=== PATIENT | male | born 1930 | race Caucasian/White ===

== ENCOUNTER 2017-08-27 20:10 | Inpatient (IN) | payer MEDICARE, BC ==
[~2017-08-27] VITALS: Ht 177.8 cm; Wt 71.7 kg
[~2017-08-27 20:10] MED LIST: BIOT1CAP3 PO; FINA5TAB11 PO; LEVO125T8 PO; MULT1TAB73 PO; OMEP20CA10 PO; ROSU20TA PO; TAMS0.4C34 PO; UBID100C PO; WARF1TAB2
[2017-08-27] MEDS ORDERED: WARF10TA2 PO (20:37)
[2017-08-27] MEDS ORDERED: WARF5TAB6 PO (20:37)
[2017-08-27] MEDS ORDERED: CLIN150C16 PO (20:37)
[2017-08-27] MEDS ORDERED: CEFU500T66 PO (20:37)
[2017-08-27] MEDS ORDERED: PANT40TA4 PO (20:37)
[2017-08-27] MEDS ORDERED: CODE118S2 PO (20:37)
[2017-08-27] MEDS ORDERED: ACETAMINOPHEN ES 500 MG TABLET PO ONE (21:00)
[2017-08-27 21:15] LABS: BASOPHILS % (AUTO) 0.2 % (0.0-2.0); EOSINOPHILS % (AUTO) 0.5 % (0.0-7.0); HEMATOCRIT 44.4 % (36.7-47.1); HEMOGLOBIN 14.9 g/dL (12.5-16.3); LYMPHOCYTES # (AUTO) 0.4 K/uL (20.0-40.0); LYMPHOCYTES % (AUTO) 5.5 % (20.5-51.5); MEAN CORPUSCULAR HEMOGLOBIN 29.9 uug (23.8-33.4); MEAN CORPUSCULAR HGB CONC 34 g/dL (32.5-36.3); MEAN CORPUSCULAR VOLUME 89.3 fL (73.0-96.2); MONOCYTES # (AUTO) 0.5 K/uL (2.0-10.0); MONOCYTES % (AUTO) 7.4 % (0.0-11.0); NEUTROPHILS # (AUTO) 6.1 K/uL (1.8-8.9); NEUTROPHILS % (AUTO) 86.4 % (38.5-71.5); PLATELET COUNT (AUTO) 123 K/uL (152-348); RED BLOOD CELL COUNT(AUTO) 4.98 MIL/uL (4.06-5.63); WHITE BLOOD COUNT (AUTO) 7.1 K/uL (3.6-10.2)
[2017-08-27] MEDS ORDERED: ACETAMINOPHEN ES 500 MG TABLET ONE (21:15)
[2017-08-27 21:26] LABS: CARBON DIOXIDE 25 mmol/L (21-32); CHLORIDE 105 mmol/L (98-107); CREATININE 1.3 mg/dL (0.6-1.3); GLUCOSE 117 mg/dL (74-106); POTASSIUM 4.2 mmol/L (3.5-5.1); UREA NITROGEN, BLOOD 24 mg/dL (7-18)
[2017-08-27 21:43] LABS: ALANINE AMINOTRANSFERASE 38 U/L (16-63); ALKALINE PHOSPHATASE 99 U/L (50-136); ASPARTATE AMINOTRANSFERASE 37 U/L (15-37); BILIRUBIN,DIRECT 0.3 mg/dL (0.0-0.2); BILIRUBIN,TOTAL 1.3 mg/dL (0.2-1.0); TOTAL PROTEIN, SERUM 7.7 g/dL (6.4-8.2)
[2017-08-27] MEDS ORDERED: IV NORMAL SALINE 500 ML BAG IV ONE (23:15)
[2017-08-28 00:22] LABS: *BILIRUBIN,URIN NEGATIVE (NEGATIVE); *BLOOD, URINE 2+ (NEGATIVE); *CLARITY,URINE CLEAR (CLEAR); *COLOR,URINE YELLOW (YELLOW); *KETONES,URINE NEGATIVE (NEGATIVE); *PROTEIN,URINE 1+ (NEGATIVE); LEUKOCYTE ESTERASE ,URINE NEGATIVE (NEGATIVE); NITRITE, URINE NEGATIVE (NEGATIVE); PH,URINE 6.5 (5.0-8.0); UGLUCOSE NEGATIVE (NEGATIVE)
--- NOTE | 2017-08-28 00:48 | NUR ---
Pt. admitted to TELE, under care of Mariana Gutiérrez Belongs List completed
[2017-08-28 01:07] LABS: BACTERIA,URINE NONE SEEN /HPF (NONE SEEN); RBC,URINE 50-80 /HPF (0-3); SQUAMOUS EPITHELIAL CELL,UR FEW /HPF (NONE SEEN)
[2017-08-28 01:08] LABS: MUCUS,URINE FEW /LPF (0-FEW)
[2017-08-28 01:49] VITALS: BP 130/69
[2017-08-28] MEDS ORDERED: HYDROCODONE/APAP 5-325MG TABLET PO PRN (02:45)
[2017-08-28] MEDS ORDERED: ONDANSETRON 4 MG/2 ML VIAL IV PRN (02:45)
[2017-08-28] MEDS ORDERED: MAGNESIUM HYDROXIDE 30 ML LIQUID UDC PO PRN (02:45)
[2017-08-28] MEDS ORDERED: Z GUARD REMEDY PASTE 57 GM TUBE TOP PRN (02:45)
[2017-08-28] MEDS ORDERED: ZOLPIDEM 5 MG TABLET PO PRN (02:45)
[2017-08-28] MEDS ORDERED: WARFARIN SODIUM 5 MG TABLET PO SCH (03:00)
--- NOTE | 2017-08-28 03:00 | NUR ---
Admitted this 86 y/o male patient via gurney, awake alert & oriented w/ spouse at bedside. Placed on Telemetry Dx. Chest pain. front desk monitor shows A-fib HR 70s. Vital signs are WNL. Room & bed orientation initiated, patient verbalized understanding. Assisted to the bathroom, patient voided, unsteady gait noted. Fall precaution observed. Kept comfortable. Will continue to monitor.
[2017-08-28 04:00] VITALS: BP 118/58
--- NOTE | 2017-08-28 06:33 | NUR ---
Fairly rested, A-fib on the monitor. Afebrile. For 2D echo procedure in AM.
[2017-08-28 07:37] LABS: BASOPHILS % (AUTO) 0.1 % (0.0-2.0); EOSINOPHILS # (AUTO) 0.1 K/uL (0.0-0.7); EOSINOPHILS % (AUTO) 1.1 % (0.0-7.0); HEMOGLOBIN 14.3 g/dL (12.5-16.3); LYMPHOCYTES # (AUTO) 1.4 K/uL (20.0-40.0); LYMPHOCYTES % (AUTO) 17.4 % (20.5-51.5); MEAN CORPUSCULAR HEMOGLOBIN 30.1 uug (23.8-33.4); MEAN CORPUSCULAR HGB CONC 33 g/dL (32.5-36.3); MEAN CORPUSCULAR VOLUME 90.3 fL (73.0-96.2); MONOCYTES % (AUTO) 12.2 % (0.0-11.0); NEUTROPHILS # (AUTO) 5.5 K/uL (1.8-8.9); NEUTROPHILS % (AUTO) 69.2 % (38.5-71.5); PLATELET COUNT (AUTO) 113 K/uL (152-348); RED BLOOD CELL COUNT(AUTO) 4.76 MIL/uL (4.06-5.63); WHITE BLOOD COUNT (AUTO) 7.9 K/uL (3.6-10.2)
--- NOTE | 2017-08-28 07:58 | NUR ---
PATIENT NOTED RESTING IN BED WITH EYES CLOSED, DENIES PAIN, NO SIGNS OF DISTRESS NOTED, CALL LIGHT IN REACH, BED LOCKED AND IN LOWEST POSITION
[2017-08-28 08:08] LABS: CARBON DIOXIDE 22 mmol/L (21-32); CHLORIDE 106 mmol/L (98-107); CREATININE 1.2 mg/dL (0.6-1.3); GLUCOSE 96 mg/dL (74-106); PHOSPHOROUS 3.3 mg/dL (2.5-4.9); POTASSIUM 3.8 mmol/L (3.5-5.1); UREA NITROGEN, BLOOD 21 mg/dL (7-18)
[2017-08-28] MEDS ORDERED: Medication Not On Formulary EA (Multivitamins (Multivitamin) 1 TAB) PO SCH (09:00)
[2017-08-28] MEDS ORDERED: Medication Not On Formulary EA (Rosuvastatin Calcium (Crestor) 1 TAB) PO SCH (09:00)
[2017-08-28] MEDS ORDERED: Medication Not On Formulary EA (Biotin 1 MG) PO SCH (09:00)
[2017-08-28] MEDS: MULTIVITAMINS,THERAPEUTIC TABLET PO SCH (09:04)
[2017-08-28] MEDS: PANTOPRAZOLE SODIUM 40 MG TABLET.DR PO SCH (09:05)
[2017-08-28] MEDS: LEVOTHYROXINE SODIUM 125 MCG TABLET PO SCH (09:05)
[2017-08-28] MEDS: FINASTERIDE 5 MG TABLET PO SCH (09:05)
[2017-08-28] MEDS ORDERED: CEFTRIAXONE 1 G in IV DEXTROSE 5% 50 ML IV SCH (11:00)
[2017-08-28 11:34] VITALS: BP 114/63
[2017-08-28] MEDS ORDERED: IPRATROPIUM BROMIDE 0.5 MG/2.5 ML NEBU NEB PRN (13:30)
[2017-08-28] MEDS ORDERED: ALBUTEROL SULFATE 2.5 MG/3 ML NEBU NEB PRN (13:30)
[2017-08-28] MEDS ORDERED: LORAZEPAM 2 MG/1 ML VIAL IV PRN (13:30)
[2017-08-28] MEDS: THIAMINE HCL 100 MG TABLET PO SCH (13:51)
[2017-08-28] MEDS: FOLIC ACID 1 MG TABLET PO SCH (13:51)
--- NOTE | 2017-08-28 14:20 | NUR ---
PT WAS SLEEPING AT 1140 AND WANTED ME TO RETURN SO PT CAN REST. RETURNED AT 1420 AND PATIENT WAS EATING. HE REQUESTED I DO TMRW IN THE AM.
[2017-08-28 15:32] VITALS: BP 113/46
[2017-08-28] MEDS: ACETAMINOPHEN 325 MG TABLET PO PRN ×2 (15:35→23:31)
[2017-08-28] MEDS: WARFARIN SODIUM 5 MG TABLET PO SCH (18:42)
[2017-08-28 19:00] VITALS: BP 105/58
--- NOTE | 2017-08-28 19:30 | NUR ---
pt placed on isolation for droplet precautions, per md orders
[2017-08-28] MEDS: TAMSULOSIN HCL 0.4 MG CAP.SR.24H PO SCH (20:37)
[2017-08-28] MEDS: ATORVASTATIN 40 MG TABLET PO SCH (20:43)
--- NOTE | 2017-08-28 21:00 | NUR ---
received to care, lying in bed, sleeping on and off, pleasant upon approach. mostly compliant with treatment, but refused his bedtime dose of lipitor. tele monitor shows a fib, while resting. no distress noted. call light in reach. will continue to monitor closely.
[2017-08-29] VITALS: BP 106/37
[2017-08-29 04:00] VITALS: BP 101/43
[2017-08-29] MEDS: PANTOPRAZOLE SODIUM 40 MG TABLET.DR PO SCH (06:26)
[2017-08-29] MEDS: LEVOTHYROXINE SODIUM 125 MCG TABLET PO SCH (06:26)
[2017-08-29 06:36] LABS: BASOPHILS % (AUTO) 0.2 % (0.0-2.0); HEMOGLOBIN 13.2 g/dL (12.5-16.3); LYMPHOCYTES # (AUTO) 0.9 K/uL (20.0-40.0); MEAN CORPUSCULAR HGB CONC 33 g/dL (32.5-36.3); NEUTROPHILS # (AUTO) 3.7 K/uL (1.8-8.9); WHITE BLOOD COUNT (AUTO) 5.3 K/uL (3.6-10.2)
--- NOTE | 2017-08-29 06:38 | NUR ---
END OF SHIFT NOTES. PT SLEPT WELL THROUGHOUT SHIFT. IN STABLE CONDITION. IV INTACT AND PATENT. A-FIB WITH HEART RATE LOW 36 ON THE TELE MONITOR. ALL NEEDS ATTENDED. ISOLATION PRECAUTIONS IN PLACE. SAFETY MAINTAINED. CALL LIGHT WITHIN REACH.
[2017-08-29 06:50] LABS: EOSINOPHILS % (AUTO) 0.9 % (0.0-7.0); HEMATOCRIT 39.7 % (36.7-47.1); LYMPHOCYTES % (AUTO) 17.2 % (20.5-51.5); MEAN CORPUSCULAR HEMOGLOBIN 29.8 uug (23.8-33.4); MEAN CORPUSCULAR VOLUME 89.9 fL (73.0-96.2); MONOCYTES # (AUTO) 0.7 K/uL (2.0-10.0); MONOCYTES % (AUTO) 12.6 % (0.0-11.0); NEUTROPHILS % (AUTO) 69.1 % (38.5-71.5); PLATELET COUNT (AUTO) 94 K/uL (152-348); RED BLOOD CELL COUNT(AUTO) 4.42 MIL/uL (4.06-5.63)
[2017-08-29 07:15] LABS: ALANINE AMINOTRANSFERASE 23 U/L (16-63); ALKALINE PHOSPHATASE 72 U/L (50-136); ASPARTATE AMINOTRANSFERASE 34 U/L (15-37); BILIRUBIN,TOTAL 0.8 mg/dL (0.2-1.0); CARBON DIOXIDE 25 mmol/L (21-32); CHLORIDE 107 mmol/L (98-107); CHOLESTEROL 94 mg/dL (<200); CREATININE 1.3 mg/dL (0.6-1.3); GLUCOSE 97 mg/dL (74-106); HDL CHOLESTEROL 42 mg/dL (40-60); PHOSPHOROUS 3.3 mg/dL (2.5-4.9); TOTAL PROTEIN, SERUM 6.4 g/dL (6.4-8.2); TRIGLYCERIDES 55 MG/DL (30-150); UREA NITROGEN, BLOOD 28 mg/dL (7-18)
[2017-08-29] MEDS: FINASTERIDE 5 MG TABLET PO SCH (08:44)
[2017-08-29] MEDS: MULTIVITAMINS,THERAPEUTIC TABLET PO SCH (08:44)
[2017-08-29] MEDS: FOLIC ACID 1 MG TABLET PO SCH (08:44)
[2017-08-29] MEDS: THIAMINE HCL 100 MG TABLET PO SCH (08:44)
[2017-08-29 10:43] LABS: BAND % (MANUAL) 2 % (0-10); LYMPHOCYTES % (MANUAL) 17 % (20-40); MONOCYTES % (MANUAL) 13 % (2-10); NEUTROPHILS % (MANUAL) 68 % (42-75)
[2017-08-29] MEDS: OSELTAMIVIR PHOSPHATE 75 MG CAPSULE PO SCH ×2 (10:57→22:45)
[2017-08-29 11:35] VITALS: BP 110/58
[2017-08-29] MEDS: CEFTRIAXONE 1 G in IV DEXTROSE 5% 50 ML IV SCH (13:44)
[2017-08-29] MEDS: ALBUTEROL SULFATE 2.5 MG/3 ML NEBU NEB SCH ×2 (13:57→19:47)
[2017-08-29] MEDS: IPRATROPIUM BROMIDE 0.5 MG/2.5 ML NEBU NEB SCH ×2 (13:57→19:47)
[2017-08-29 15:53] VITALS: BP 136/66
[2017-08-29] MEDS: ACETAMINOPHEN 325 MG TABLET PO PRN (15:54)
--- NOTE | 2017-08-29 16:35 | NUR ---
Pt has elevated temp of 102.5. Tylenol given and cooling measure started. Will monitor pt. 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 Call light is within reach.
[2017-08-29] MEDS ORDERED: WARFARIN SODIUM 10 MG TABLET PO SCH (17:00)
--- NOTE | 2017-08-29 17:30 | NUR ---
Temp rechecked 99.3. Prior interventions effective. Call light is within reach.
--- NOTE | 2017-08-29 18:30 | NUR ---
Fall precaution effective no fall noted this shift. Current temp of 98.0 Cooling measure effective.
--- NOTE | 2017-08-29 19:45 | NUR ---
PT RECEIVED IN BED, AWAKE. A/OX2. ABLE TO MAKE NEEDS KNOWN. V/S STABLE. IN NO ACUTE DISTRESS. NO C/O PAIN AT THIS TIME. ON RA, TOLERATING WELL. AFEBRILE AT THIS TIME. IV INTACT AND PATENT. DROPLET PRECAUTIONS IN PLACE. SAFETY MEASURES IMPLEMENTED. FALL RISK, BED ALARM SET. CALL LIGHT WITHIN REACH.
[2017-08-29 20:00] VITALS: BP 114/57
[2017-08-29] MEDS: ATORVASTATIN 40 MG TABLET PO SCH (22:44)
[2017-08-29] MEDS: TAMSULOSIN HCL 0.4 MG CAP.SR.24H PO SCH (22:44)
[2017-08-30] MEDS: IPRATROPIUM BROMIDE 0.5 MG/2.5 ML NEBU NEB SCH ×4 (01:30→18:55)
[2017-08-30] MEDS: ALBUTEROL SULFATE 2.5 MG/3 ML NEBU NEB SCH ×4 (01:30→18:55)
[2017-08-30 04:00] VITALS: BP 139/72
[2017-08-30] MEDS: PANTOPRAZOLE SODIUM 40 MG TABLET.DR PO SCH (06:48)
[2017-08-30] MEDS: LEVOTHYROXINE SODIUM 125 MCG TABLET PO SCH (06:48)
[2017-08-30 07:00] LABS: BASOPHILS % (AUTO) 0.1 % (0.0-2.0); EOSINOPHILS # (AUTO) 0.1 K/uL (0.0-0.7); EOSINOPHILS % (AUTO) 1.9 % (0.0-7.0); HEMATOCRIT 40.1 % (36.7-47.1); HEMOGLOBIN 13.3 g/dL (12.5-16.3); LYMPHOCYTES # (AUTO) 0.8 K/uL (20.0-40.0); LYMPHOCYTES % (AUTO) 18.2 % (20.5-51.5); MEAN CORPUSCULAR HEMOGLOBIN 29.6 uug (23.8-33.4); MEAN CORPUSCULAR HGB CONC 33 g/dL (32.5-36.3); MEAN CORPUSCULAR VOLUME 89.4 fL (73.0-96.2); MONOCYTES # (AUTO) 0.7 K/uL (2.0-10.0); MONOCYTES % (AUTO) 14.4 % (0.0-11.0); NEUTROPHILS % (AUTO) 65.4 % (38.5-71.5); PLATELET COUNT (AUTO) 97 K/uL (152-348); RED BLOOD CELL COUNT(AUTO) 4.48 MIL/uL (4.06-5.63); WHITE BLOOD COUNT (AUTO) 4.7 K/uL (3.6-10.2)
[2017-08-30 07:07] LABS: ALANINE AMINOTRANSFERASE 20 U/L (16-63); ALKALINE PHOSPHATASE 75 U/L (50-136); ASPARTATE AMINOTRANSFERASE 33 U/L (15-37); BILIRUBIN,TOTAL 0.6 mg/dL (0.2-1.0); CARBON DIOXIDE 25 mmol/L (21-32); CHLORIDE 108 mmol/L (98-107); GLUCOSE 92 mg/dL (74-106); MAGNESIUM 2.1 mg/dL (1.8-2.4); PHOSPHOROUS 2.7 mg/dL (2.5-4.9); POTASSIUM 3.7 mmol/L (3.5-5.1); TOTAL PROTEIN, SERUM 6.4 g/dL (6.4-8.2); UREA NITROGEN, BLOOD 26 mg/dL (7-18)
--- NOTE | 2017-08-30 07:34 | NUR ---
END OF SHIFT NOTES. PT SLEPT WELL THROUGHOUT SHIFT. IN STABLE CONDITION. ALL NEEDS ATTENDED. SAFETY MAINTAINED. CALL LIGHT WITHIN REACH
[2017-08-30] MEDS: MULTIVITAMINS,THERAPEUTIC TABLET PO SCH (08:38)
[2017-08-30] MEDS: THIAMINE HCL 100 MG TABLET PO SCH (08:39)
[2017-08-30] MEDS: FINASTERIDE 5 MG TABLET PO SCH (08:39)
[2017-08-30] MEDS: FOLIC ACID 1 MG TABLET PO SCH (08:39)
[2017-08-30] MEDS: OSELTAMIVIR PHOSPHATE 75 MG CAPSULE PO SCH ×3 (08:40→21:49)
--- NOTE | 2017-08-30 10:00 | NUR ---
Pt denies any c/o pain. Call light is within reach. IV site on left AC intact. Fall precaution implemented. Bed alarm on - Frequent offer of bathroom initiated.
[2017-08-30 11:02] VITALS: BP 114/72
[2017-08-30 11:47] LABS: EOSINOPHILS % (MANUAL) 5 % (0-8); LYMPHOCYTES % (MANUAL) 18 % (20-40); MONOCYTES % (MANUAL) 12 % (2-10); NEUTROPHILS % (MANUAL) 65 % (42-75)
[2017-08-30] MEDS: CEFTRIAXONE 1 G in IV DEXTROSE 5% 50 ML IV SCH (13:36)
[2017-08-30 15:25] VITALS: BP 120/62
[2017-08-30] MEDS: WARFARIN SODIUM 5 MG TABLET PO SCH (17:47)
--- NOTE | 2017-08-30 18:00 | NUR ---
No fall this am shift. Fall precaution effective. Will continue to monitor pt. Pt afebrile this am shift.
[2017-08-30 19:00] VITALS: BP 129/83
[2017-08-30] MEDS: ATORVASTATIN 40 MG TABLET PO SCH (21:48)
[2017-08-30] MEDS: TAMSULOSIN HCL 0.4 MG CAP.SR.24H PO SCH (21:49)
[2017-08-31] MEDS: IPRATROPIUM BROMIDE 0.5 MG/2.5 ML NEBU NEB SCH ×3 (00:41→14:10)
[2017-08-31] MEDS: ALBUTEROL SULFATE 2.5 MG/3 ML NEBU NEB SCH ×3 (00:41→14:10)
[2017-08-31 04:00] VITALS: BP 127/83
--- NOTE | 2017-08-31 05:45 | NUR ---
Pt slept throughout the night comfortably. Pt is in no acute distress.
[2017-08-31] MEDS: LEVOTHYROXINE SODIUM 125 MCG TABLET PO SCH (06:39)
[2017-08-31] MEDS: PANTOPRAZOLE SODIUM 40 MG TABLET.DR PO SCH (06:39)
[2017-08-31 07:52] LABS: BASOPHILS % (AUTO) 0.1 % (0.0-2.0); EOSINOPHILS # (AUTO) 0.2 K/uL (0.0-0.7); EOSINOPHILS % (AUTO) 5.3 % (0.0-7.0); HEMATOCRIT 41.1 % (36.7-47.1); HEMOGLOBIN 13.5 g/dL (12.5-16.3); LYMPHOCYTES # (AUTO) 1.1 K/uL (20.0-40.0); LYMPHOCYTES % (AUTO) 26.1 % (20.5-51.5); MEAN CORPUSCULAR HEMOGLOBIN 29.4 uug (23.8-33.4); MEAN CORPUSCULAR HGB CONC 33 g/dL (32.5-36.3); MEAN CORPUSCULAR VOLUME 89.7 fL (73.0-96.2); MONOCYTES # (AUTO) 0.6 K/uL (2.0-10.0); MONOCYTES % (AUTO) 15.2 % (0.0-11.0); NEUTROPHILS # (AUTO) 2.2 K/uL (1.8-8.9); NEUTROPHILS % (AUTO) 53.3 % (38.5-71.5); PLATELET COUNT (AUTO) 108 K/uL (152-348); RED BLOOD CELL COUNT(AUTO) 4.58 MIL/uL (4.06-5.63); WHITE BLOOD COUNT (AUTO) 4.1 K/uL (3.6-10.2)
[2017-08-31 08:10] LABS: ALANINE AMINOTRANSFERASE 23 U/L (16-63); ALKALINE PHOSPHATASE 76 U/L (50-136); ASPARTATE AMINOTRANSFERASE 37 U/L (15-37); BILIRUBIN,TOTAL 0.7 mg/dL (0.2-1.0); CARBON DIOXIDE 25 mmol/L (21-32); CHLORIDE 109 mmol/L (98-107); CREATININE 0.9 mg/dL (0.6-1.3); GLUCOSE 82 mg/dL (74-106); MAGNESIUM 2.1 mg/dL (1.8-2.4); POTASSIUM 3.8 mmol/L (3.5-5.1); TOTAL PROTEIN, SERUM 6.3 g/dL (6.4-8.2); UREA NITROGEN, BLOOD 19 mg/dL (7-18)
[2017-08-31] MEDS: OSELTAMIVIR PHOSPHATE 75 MG CAPSULE PO SCH (08:38)
[2017-08-31] MEDS: FINASTERIDE 5 MG TABLET PO SCH (08:38)
[2017-08-31] MEDS: MULTIVITAMINS,THERAPEUTIC TABLET PO SCH (08:40)
[2017-08-31] MEDS: THIAMINE HCL 100 MG TABLET PO SCH (08:40)
[2017-08-31] MEDS: FOLIC ACID 1 MG TABLET PO SCH (08:40)
[2017-08-31 11:16] VITALS: BP 147/45
[2017-08-31] MEDS ORDERED: AMPICILLIN 500 MG CAPSULE PO SCH (12:00)
[2017-08-31] MEDS ORDERED: OSEL75CA PO (12:45)
[2017-08-31] MEDS ORDERED: ACET325T53 PO (12:45)
[2017-08-31] MEDS ORDERED: AMPI500C11 PO (12:45)
[2017-08-31] MEDS ORDERED: WARF10TA2 PO ×2 (12:48)
[2017-08-31 13:48] LABS: BAND % (MANUAL) 6 % (0-10); EOSINOPHILS % (MANUAL) 3 % (0-8); LYMPHOCYTES % (MANUAL) 27 % (20-40); MONOCYTES % (MANUAL) 16 % (2-10); NEUTROPHILS % (MANUAL) 47 % (42-75)
[2017-08-31 13:52] LABS: REACTIVE LYMPHOCYTES 1 % (0-0)
--- NOTE | 2017-08-31 15:00 | NUR ---
pt discharged with all belongings and valuables, exit care packet, pt refused flu shot and pnuemonia shot. pt refused 2/3 pictures needed of wounds. pt is irritable and eager to leave facility. pt is stable for discharge, he will be leaving home with . Pt IV was removed.
--- NOTE | 2017-08-31 15:00 | NUR ---
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 Input information in the computer under preferred pharmacy. Contacted pharmacy and was told that they are no longer delivering for today but will deliver medication tomorrow. contacted and is aware. Patient discharged at this time.
[2017-09-01] MEDS ORDERED: WARFARIN SODIUM 10 MG TABLET PO SCH (17:00)
== END 2017-08-31 15:20 | disposition home health service (06) | DRG 193 ==
LOC: ER 20:10 → TELE 23:50 → ER 08-28 00:55 → MED 08-29 13:00
PROVIDERS: ADMIT Nurse Practitioner Acute Care; ATTEND Internal Medicine
DX: J10.1 Influenza due to other identified influenza virus with other respiratory manifestations (principal); G92 Toxic encephalopathy; N17.0 Acute kidney failure with tubular necrosis; I50.33 Acute on chronic diastolic (congestive) heart failure; E44.0 Moderate protein-calorie malnutrition; D69.6 Thrombocytopenia, unspecified; I48.2 Chronic atrial fibrillation; I36.1 Nonrheumatic tricuspid (valve) insufficiency; B34.9 Viral infection, unspecified; B95.2 Enterococcus as the cause of diseases classified elsewhere; N39.0 Urinary tract infection, site not specified; I11.0 Hypertensive heart disease with heart failure; W19.XXXA Unspecified fall, initial encounter; E03.9 Hypothyroidism, unspecified; E78.5 Hyperlipidemia, unspecified; H40.9 Unspecified glaucoma; I25.10 Atherosclerotic heart disease of native coronary artery without angina pectoris; I25.2 Old myocardial infarction; K21.9 Gastro-esophageal reflux disease without esophagitis; Z79.01 Long term (current) use of anticoagulants; J20.9 Acute bronchitis, unspecified; Z86.73 Personal history of transient ischemic attack (TIA), and cerebral infarction without residual deficits; M19.90 Unspecified osteoarthritis, unspecified site; Z85.820 Personal history of malignant melanoma of skin; Z72.89 Other problems related to lifestyle; N40.1 Benign prostatic hyperplasia with lower urinary tract symptoms; R07.9 Chest pain, unspecified; Z95.1 Presence of aortocoronary bypass graft; Y93.9 Activity, unspecified; Y92.009 Unspecified place in unspecified non-institutional (private) residence as the place of occurrence of the external cause; R73.9 Hyperglycemia, unspecified; I35.0 Nonrheumatic aortic (valve) stenosis; I35.1 Nonrheumatic aortic (valve) insufficiency; I34.0 Nonrheumatic mitral (valve) insufficiency; H70.893 Other mastoiditis and related conditions, bilateral; F41.9 Anxiety disorder, unspecified; Z79.899 Other long term (current) drug therapy; Z87.891 Personal history of nicotine dependence; R55 Syncope and collapse
CPT/HCPCS: 36415; 70030-TC; 70450; 71010; 83605; 83735; 84100; 85025; 85610; 85730; 87040; 87077; 87086; 87400; 93005; 93307; 93880; 94640; 94664; 97116; 97165; 97530; A4663; J0290; J0696; J3590; J7030; J7040; J7060